=== PATIENT | male | born 1970 | race Caucasian/White ===

== ENCOUNTER 2022-01-29 08:16 | Emergency (ER) | payer OTHER ==
[~2022-01-29] VITALS: Ht 177.8 cm; Wt 90.9 kg
[~2022-01-29 08:16] MED LIST: HYDR-4383 PO
[2022-01-29 09:54] LABS: BASOPHILS % (AUTO) 0.1 % (0-1); EOSINOPHILS % (AUTO) 0.4 % (0-6); HEMATOCRIT 43.5 % (42.0-52.0); HEMOGLOBIN 14.6 g/dl (14.0-17.9); LYMPHOCYTES # (AUTO) 1.2 X10'3 (1.1-4.8); LYMPHOCYTES % (AUTO) 9.6 % (21-51); MEAN CORPUSCULAR HGB CONC 33.6 g/dL (33.0-36.5); MEAN CORPUSCULAR VOLUME 92.2 FL (78-98); MEAN PLATELET VOLUME 6.9 FL (7.4-10.4); MONOCYTES # (AUTO) 1.2 X10'3 (0-0.9); MONOCYTES % (AUTO) 9.7 % (2-12); NEUTROPHILS # (AUTO) 9.6 X10'3 (1.8-7.7); NEUTROPHILS % (AUTO) 80.2 % (42-75); PLATELET COUNT 257 X10'3 (140-440); RED BLOOD COUNT 4.71 X10'6 (4.70-6.10); RED CELL DISTRIBUTION WIDTH 12.9 % (11.5-14.5)
[2022-01-29 10:17] LABS: ALANINE AMINOTRANSFERASE 21 U/L (12-78); ALBUMIN 3.4 G/DL (3.4-5.0); ALKALINE PHOSPHATASE 51 IU/L (46-116); AMYLASE 70 U/L (25-115); ANION GAP 8 (8-16); ASPARTATE AMINO TRANSFERASE 17 U/L (10-37); BLOOD UREA NITROGEN 12 MG/DL (7-18); BUN/CREATININE RATIO 15.4 (5.4-32.0); CALCIUM 8.4 MG/DL (8.5-10.1); CHLORIDE 104 MMOL/L (99-107); CREATININE 0.78 MG/DL (0.60-1.10); GLUCOSE 94 MG/DL (70-104); LIPASE 145 U/L (73-393); POTASSIUM 4.2 MMOL/L (3.5-5.1); SODIUM 139 MMOL/L (135-145); TOTAL CARBON DIOXIDE 27.5 MMOL/L (24-32); TOTAL PROTEIN 6.9 G/DL (6.4-8.2); eGFR > 90 ML/MIN
[2022-01-29 11:32] LABS: CLARITY,URINE CLEAR (Clear); COLOR,URINE YELLOW (Yellow); GLUCOSE, URINE NEGATIVE (Neg); KETONES,URINE 15 mg/dl (Neg); LEUKOCYTE ESTERASE ,URINE NEGATIVE (Neg); NITRITES, URINE NEGATIVE (Neg); OCCULT BLOOD,URINE SMALL (Neg); PROTEIN,URINE NEGATIVE (Neg)
[2022-01-29 11:46] LABS: UA COLLECTION TYPE CLN CATCH MIDSTREAM
[2022-01-29 11:47] LABS: MUCUS STRANDS MANY /LPF (Neg); SQUAMOUS EPITHELIAL CELL,UR FEW /LPF (FEW)
[2022-01-29 11:48] LABS: BACTERIA,URINE 1+ /HPF (Neg); WBC,URINE 0-4 /HPF (0-4)
--- NOTE | 2022-01-29 12:10 | NUR ---
Pt d/c home via ambulatory in good condition, instructions given, pt verbalized understanding.
[2022-01-29 12:11] VITALS: BP 112/72
== END 2022-01-29 12:13 | disposition home or self-care (01) ==
LOC: ER 08:17
DX: R10.32 Left lower quadrant pain (principal); K43.9 Ventral hernia without obstruction or gangrene
CPT/HCPCS: 36415; 80053; 81001; 82150; 83690; 85025; 99283; 99284

== ENCOUNTER 2025-04-05 18:53 | Inpatient (IN) | payer OTHER ==
[~2025-04-05] VITALS: Ht 177.8 cm; Wt 84.1 kg
--- NOTE | 2025-04-05 19:03 | Physician Documentation ---
History of Present Illness ~ Stated Complaint: DBT Time Seen by MD: 19:04 OK to notify your PCP?: Yes Primary Medical Doctor: Varun @ [facility] Source: patient Mode of Arrival: POV Exam Limitations: no limitations HPI 54-year-old male presents with right lower extremity pain, swelling and redness. He states that he was seen a couple weeks ago at the [facility] and was told if it gets worse to come here. He states that it has been coming on and off but now he is having some tightness and pressure type pain which is from the calf all the way up to the posterior thigh and behind the knee. He has not taken any medication. He has no history of immobility but he did have a groin injury recently. He does not take any blood thinning medications. Tetanus witin 5 years: No Medication Reconciliation Allergies: Coded Allergies: No Known Allergies (Unverified , 01/29/22) Scheduled PRN Hydrocodone/Acetaminophen ([place] 5-325 Tablet), 1 TABLET PO TID PRN for pain Past Medical History Past Medical History: No Pertinent History Past Surgical History: noncontributory Alcohol Use: Sober Lives with: Spouse, Family Lives In: Home Occupation: employed Review of Systems All Other Systems at this time: Reviewed and Negative Musculoskeletal: Reports: see HPI Physical Exam Vital Signs: RN Vital Signs have been reviewed: Yes Pulse Oximetry Reflects: adequate oxygenation Physical Exam General: Alert, no distress. HEENT: No injection, moist mucous membranes. Neck: Full range of motion. Respiratory: No respiratory distress, equal chest rise and fall. Chest: No accessory muscle use. Cardiovascular: Regular rate and rhythm. Gastrointestinal: Nondistended. Extremities: Slight erythema and warmth tenderness to palpation and swelling to right calf and knee. Neurologic: Oriented x4. Psychiatric: Normal mood and affect. Skin: Normal color, warm and dry. Progress Results/Orders Results/Orders Orders - MICHELLE ROBLES NP Vl Venous (04/05/25 19:05) Electrocardiogram (04/05/25 20:37) Chest,Single View (04/05/25 20:37) Page Hospitalist (04/05/25 20:37) Fill Out Med Reconciliation (04/05/25 20:37) Completed Orders - MICHELLE ROBLES NP Vl Venous (04/05/25 19:05) Cbc/Diff (04/05/25 20:37) Pt Inr (04/05/25 20:37) PTT (04/05/25 20:37) Chest,Single View (04/05/25 20:37) BMP (04/05/25 20:37) Vital Signs 04/05/25 04/05/25 19:02 20:14 Temp 97.9 97.9 Pulse 67 65 Resp 18 18 B/P (MAP) 133/86 128/84 (99) Pulse Ox 100 99 O2 Flow Rate 0 0 Laboratory Tests Test 04/05/25 20:49 White Blood Count 8.4 Red Blood Count 4.53 L Hemoglobin 14.1 Hematocrit 40.8 L Mean Corpuscular Volume 90.2 Mean Corpuscular Hemoglobin 31.1 H Mean Corpuscular Hemoglobin Concent 34.5 Red Cell Distribution Width 12.9 Platelet Count 223 Mean Platelet Volume 6.8 L Neutrophils (%) (Auto) 64.6 Lymphocytes (%) (Auto) 20.9 L Monocytes (%) (Auto) 10.6 Eosinophils (%) (Auto) 3.3 Basophils (%) (Auto) 0.6 Neutrophils # (Auto) 5.4 Lymphocytes # (Auto) 1.8 Monocytes # (Auto) 0.9 Eosinophils # (Auto) 0.3 Basophils # (Auto) 0.0 CBC Comment Prothrombin Time 10.4 INR International Normalized Ratio 1.0 Activated Partial Thromboplast Time 26 Coagulation Comments Sodium Level 139 Potassium Level 3.6 Chloride Level 107 Carbon Dioxide Level 26.4 Anion Gap 6 L Blood Urea Nitrogen 19 H Creatinine 0.84 Estimated GFR/1.73 m2 > 90 BUN/Creatinine Ratio 22.6 H Glucose Level 100 Calcium Level 8.1 L Albumin 3.4 Chemistry Comments Medical Decision Making Additional information obtaine: N/A Findings 54-year-old with history of recent travel and immobility. Pain to right p osterior calf with erythema and warmth. DVT versus cellulitis vascular ultrasound ordered for further evaluation. No chest pain shortness of breath vital signs reassuring. Venous ultrasound indicates obstructive acute on chronic DVT extending into the common femoral artery General Diff Dx:Considerations: Unlikely: Abrasion, Contusion, Fracture, Hematoma, Laceration, Malunion, Neurovascular injury, Open fracture, Sprain, Ulcer, Other Knee Diff Dx:Considerations: Unlikely: Abrasion, Arthritis, Contusion, DJD, Fracture-femur, Fracture-fibula, Fracture-patella, Fracture-tibia, Gout, Hematom a, Laceration, Meniscus injury, Neurovascular injury, Open fracture, Rheumatoid arthritis, Septic, Sprain, Sprain-MCL, Sprain-LCL, Sprain-ACL, Sprain-PCL, Other Ankle Diff Dx:Considerations: Unlikely: Abrasion, Arthritis, Contusion, DJD, Fracture-metatarsal, Fracture-fibula, Fracture-tarsal, Fracture-tibia, Gout, Hematoma, Laceration, Malunion, Neurovascular injury, Nonunion, Open fracture, Osteomyelitis, Rheumatoid arthritis, Sprain, Septic, Ulcer, Other Foot Diff Dx:Considerations: Unlikely: Abrasion, Arthritis, Cellulitis, Contusion, Dislocation, DJD, Fracture-metatarsal, Fracture-phalynx, Fracture- tarsal, Gout, Hematoma, Ingrown toenail, Laceration, Malunion, Neurovascular injury, Open fracture, Paronychia, Puncture, Rheumatoid, Sprain, Septic, Subungual hematoma, Ulcer, Other Toe Diff Dx:Considerations: Unlikely: Abrasion, Cellulitis, Contusion, Dislocation, Felon, Fracture, Hematoma, Laceration, Neurovascular injury, Open fracture, Paronychia, Subungual hematoma, Other Departure Time of Disposition: 21:39 Disposition: 02 [facility]ORT [facility]M [facility] Impression: Primary Impression: Dvt femoral (deep venous thrombosis) Condition: Fair Referrals: NO PRIMARY CARE PROVIDER (PCP) Education Educated: Patient Educated regarding: diagnosis, treatment, need for follow up Additional Comment Medical Screen Exam This patient recieved a medical screening examination. After reviewing the individual's medical complaints with presenting symptoms and performing an appropriate physical examination, it was determined that no immediate life- threatening emergency medical condition is present. This individual is also not a women having contractions. Signature Scribe Signature: No scribe Attestation: The note accurately reflects work and decisions made by me.Michelle Robles - RONAK 04/05/25 19:48 JEANNINE LIZAMA Apr 05, 2025 19:03 MICHELLE ROBLES NP Apr 05, 2025 19:44
[2025-04-05 20:55] LABS: MEAN PLATELET VOLUME 6.8 FL (7.4-10.4); RED CELL DISTRIBUTION WIDTH 12.9 % (11.5-14.5)
--- NOTE | 2025-04-05 20:55 | RADIOLOGY REPORT ---
CHEST RADIOGRAPH Indication: admit, DVT Technique: Single frontal view of the chest was obtained COMPARISON: None FINDINGS: Lungs and pleural spaces are clear. Cardiac silhouette and nehal are within normal limits. Bones and soft tissues demonstrate no significant abnormality. IMPRESSION: No acute disease.
[2025-04-05 21:06] LABS: CREATININE 0.84 MG/DL (0.60-1.10); TOTAL CARBON DIOXIDE 26.4 MMOL/L (24-32); eCRCL 103 ML/MIN; eGFR > 90 ML/MIN
[2025-04-05 21:09] LABS: APTT 26 SECONDS (22-32); INR 1.0 INR
--- NOTE | 2025-04-05 21:11 | VASCULAR REPORT ---
PROCEDURE: [facility] VENOUS Exam Date: 04/05/2025 08:21 PM History: Swelling and pain right lower extremity. Findings: Technique: Duplex Doppler evaluation of the superficial veins of the right and left lower extremities was performed including color Doppler and spectral/pulsed waveform analysis. Findings: Chronic occlusive thrombus diffusely throughout the right femoral vein and popliteal vein. Partially occlusive thrombus in the common femoral vein in the right groin. Left common femoral vein is patent. Impression: Extensive left lower extremity DVT.
--- NOTE | 2025-04-05 21:40 | ELECTROCARDIOGRAPH REPORT ---
[facility] Test Date: 2025-04-05 Test Time: 21:37:11 Pat Name: NAYELI ORO Department: [facility] Patient ID: [id number] Room: Gender: M Physical Therapy Coordinator: : 1970 Requested By: HIPOLITO LUO Order Number: [id number] Reading MD: Measurements Intervals [place] Rate: 56 P: 57 OK: 192 QRS: -6 QRSD: 102 T: 39 QT: 416 QTc: 402 Interpretive Statements Sinus bradycardia Atrial premature complex Low voltage, extremity leads Please click the below link to view image of tracing.
[2025-04-05] MEDS ORDERED: magnesium hydroxide 30ml (MOM) UD suspension PO PRN (21:45)
[2025-04-05] MEDS ORDERED: ondansetron/PF 4mg/2ml inj IV PRN (21:45)
[2025-04-05] MEDS ORDERED: magnesium Cl slow-release 64mg tablet PO PRN (21:45)
[2025-04-05] MEDS ORDERED: potassium Cl 40MEQ/1/2NS 520ml 520 ML IV PRN (21:45)
[2025-04-05] MEDS ORDERED: HYDROcodone/acetaminophen 5mg/325mg tablet PO PRN (21:45)
[2025-04-05] MEDS ORDERED: magnesium sulf-water 2g/50mL 50 ML IV PRN (21:45)
[2025-04-05] MEDS ORDERED: magnesium sulf-water 4G/100mL 100 ML IV PRN (21:45)
[2025-04-05] MEDS ORDERED: potassium Cl 20 mEq SR tablet PO PRN ×2 (21:45)
[2025-04-05] MEDS ORDERED: mag hydrox/Alum hydrox/simeth 30ml oral suspension PO PRN (21:45)
--- NOTE | 2025-04-05 22:00 | HISTORY AND PHYSICAL-Residence ---
History & Physical Providers to CC Resident Creating Document: YVONNE ECHEVARRIA RES ~ History of Present Illness Primary Medical Doctor: Varun @ [facility] Reason for Admit\Complaint: Right lower extremity pain History of Present Illness This 54-year-old male presented to the ER with a chief concern of worsening right lower extremity pain. He said he was doing a lot of exercise in gym and had right groin discomfort about three months back and the discomfort lasted for six weeks. He recently developed right calf pain that started about a week back and has been intermittent. Now, the frequency increased and is finding it difficult to ambulate. Denies any fever or chills, chest pain, shortness of breath, dizziness, hemoptysis, nausea or vomiting, abdominal pain, constipation or diarrhea, dysuria or any other concerns. Denies having bleeding disorders or blood clots in the past. Denies any recent long travel or history of cancers. At the [place], he drives about 4-5 hours to be the the area once in a month. No recent surgical history. Mentioned that his mother had DVT but is unsure if it was provoked or unprovoked. Has been taking testosterone injection once in two weeks for the last five years and takes supplements for the gym. Denies taking any other medications Allergies: Coded Allergies: No Known Allergies (Unverified , 01/29/22) Home Medications Home Medications Active [place] 5-325 Tablet (Hydrocodone/Acetaminophen) 1 Each Tablet 1 Tablet PO TID PRN Past Medical History Past Medical History Primary hypogonadism-testosterone deficiency Past Surgical History Surgical History Comment Denies any surgical procedures Past Social History Social History Comment Denies smoking tobacco or drinking alcohol. Smokes marijuana daily. 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 No nausea, vomiting, diarrhea, constipation, hematemesis, abdominal pain, bloating, melena or fresh blood Genitourinary: No frequency, urgency, nocturia, hematuria or dysuria Musculoskeletal: Pain in the right calf present. No arthralgias Integumentary: No change in skin, hair, nails. No swelling, bruising, abrasions Neurologic: No headache, neck pain, numbness or tingling of the extremities, weakness Psychiatric: No delusions, depression, loss of interest in normal activity or change in sleep pattern, hallucinations, suicidal ideations Endocrine: No fatigue, weakness, polydipsia, polyuria, change in appetite, heat or cold intolerance, sweating, dry skin Hematological: No bleeding, petechiae, bruising Allergies: No asthma or urticaria Musculoskeletal: Reports: see HPI Exam Vitals: Vital Signs Date Time Temp Pulse Resp B/P (MAP) Pulse Ox O2 Delivery O2 Flow Rate FiO2 04/05/25 20:14 97.9 65 18 128/84 (99) 99 0 General: Alert and oriented x4 HEENT: Normocephalic and atraumatic. Pupils equal round reactive to light and accommodation. Extraocular movements intact. Oral and nasal mucosa moist Neck: Trachea is in midline. No masses or JVD Chest: Bilateral normal breath sounds. No crackles, rhonchi or wheezes Cardiovascular: Regular rate and rhythm. S1-S2 normal. No rubs or murmurs Abdomen: Soft, nontender nondistended. Bowel sounds present Extremities: No cyanosis, clubbing or edema. Right leg has mild increased circumference compared to the left leg. No erythema or pitting edema or significant swelling. Homans sign negative. Central Nervous System: No gross sensory or motor deficits. CN II to XII grossly intact. No cerebellar signs Skin: Warm and dry Diagnostic Data Last Recorded Lab Results: 04/05/25204804/05/252048 Diagnostic Data: Laboratory Tests Test 04/05/25 20:49 Prothrombin Time 10.4 SECONDS (9.0-12.0) INR International Normalized Ratio 1.0 INR Activated Partial Thromboplast Time 26 SECONDS (22-32) Coagulation Comments Advance Care Planning Advanced Care plannin - 30 Minutes Additional Plan Right lower extremity extensive DVT Family history of DVT Likely unprovoked DVT but also takes testosterone Chronic PE No polycythemia Venous ultrasound showed chronic occlusive thrombus diffusely throughout the right femoral vein and popliteal vein. Partially occlusive thrombus in the common femoral vein in the right groin. Left femoral vein is patent Started Eliquis 10 mg p.o. b.i.d.. Continue for a week and then change it to 5 mg p.o. b.i.d. for 3-6 months Requires lifelong anticoagulation if positive for any coagulation abnormalities Requires outpatient workup for factor five Leiden mutation, prothrombin gene mutation, antithrombin three deficiency, protein C and S deficiency Educated the patient and the about the outpatient woke up Ordered a chest CTA to rule out PE as the DVT was present in the proximal vein of lower extremity Chest CTA showed Chronic recanalized thrombus identified in interlobar arteries supplying bilateral lower lobes. No definite acute pulmonary embolism. Distal subsegmental acute thrombus is difficult to rule out in the context of chronic recanalized thrombus. Echocardiogram ordered EKG showed sinus bradycardia with PACs, borderline to mildly prolonged [place] interval, narrow QRS, low voltage complexes, possible Q-waves in leads III and V1 Chest x-ray shows borderline cardiomegaly and mild pulmonary vascular congestion Pending troponin and proBNP Asymptomatic bradycardia Patient denies any symptoms. Heart rate in 50s EKG shows EKG showed sinus bradycardia with PACs, borderline to mildly prolonged [place] interval, narrow QRS, low voltage complexes, possible Q-waves in leads three and V1 Possible sick sinus syndrome versus first-degree AV block Does not take any AV james blocking agents at home Continue telemetry monitoring Follow up echocardiogram Primary hypogonadism Takes testosterone shot once in two weeks GI prophylaxis: Protonix 40 mg p.o. daily Diet: Regular diet Yvonne Echevarria MD Internal Medicine Resident, PGY 3 Patient was seen and evaluated Agree with plan as discussed with the resident Lizeth Robertson MD Date of Service: Apr 05, 2025 Billing Provider: LIZETH ROBERTSON MD, MANOJNA RES Apr 05, 2025 22:00 LIZETH ROBERTSON MD Apr 06, 2025 02:55
[2025-04-05 22:33] LABS: PHOSPHORUS 3.7 MG/DL (2.3-4.5); PRO BRAIN NATRIURETIC PEPTIDE 123 PG/ML (0-125)
--- NOTE | 2025-04-05 22:40 | RADIOLOGY REPORT ---
COMPUTERIZED TOMOGRAPHIC ANGIOGRAPHY OF THE CHEST WITH INTRAVENOUS CONTRAST REASON FOR EXAM: Positive DVT study. Rule out pulmonary embolism. Dyspnea. COMPARISON: None TECHNIQUE: The exam was performed on a multidetector spiral scanner. Spiral images were acquired from the thoracic inlet through the adrenal glands, during the bolus intravenous administration of contrast. Multiplanar maximum intensity projection (MIP) images were provided. Radiation optimization: All CT scans at this facility use at least one of these dose optimization techniques: Automated exposure control mA and/or kV adjustment per patient size (includes targeted exams where dose is matched to clinical indication) or iterative reconstruction. CONTRAST ADMINISTERED: 100 mL omnipaque 350 intravenously. RADIATION DOSE: CTDI: 19 mGy DLP: 713 mGy-cm FINDINGS: There is minimal dependent atelectasis in bilateral lower lobes of the lungs. No significant pulmonary nodule or mass is identified. There is no bronchiectasis or honeycombing. There is no pleural effusion. There is no pneumothorax. The heart is not enlarged. The esophagus appears diffusely thick walled. There is no pericardial effusion. There is no thoracic aortic aneurysm or dissection. There is no central pulmonary arterial filling defect to suggest acute pulmonary embolism as far as the interlobar level. There are wall adherent recanalized chronic thrombi at interlobar pulmonary arteries supplying bilateral lower lobes. No acute osseous abnormality is identified. IMPRESSION: Chronic recanalized thrombus identified in interlobar arteries supplying bilateral lower lobes. No definite acute pulmonary embolism. Distal subsegmental acute thrombus is difficult to rule out in the context of chronic recanalized thrombus.
[2025-04-05 23:06] LABS: LEUKOCYTE ESTERASE ,URINE NEGATIVE (Neg); NITRITES, URINE NEGATIVE (Neg); OCCULT BLOOD,URINE TRACE-INTACT (Neg); UA COLLECTION TYPE NON-SPECIFIED
[2025-04-05 23:10] VITALS: BP 128/79; PULSE 59; RESP 16; TEMP 98.2; O2SAT 98
[2025-04-05 23:13] LABS: AMORPHOUS PHOSPHATES 2+; SQUAMOUS EPITHELIAL CELL,UR NONE SEEN /LPF (FEW)
[2025-04-05 23:33] LABS: URINE AMPHETAMINE SCREEN NEGATIVE (Neg); URINE BARBITUATE SCREEN NEGATIVE (Neg); URINE BENZODIAZEPINES SCREEN NEGATIVE (Neg); URINE CANNABINOID SCREEN POSITIVE (Neg); URINE COCAINE SCREEN NEGATIVE (Neg); URINE METHADONE SCREEN NEGATIVE (Neg); URINE OPIATE SCREEN NEGATIVE (Neg); URINE PHENCYCLIDINE SCREEN NEGATIVE (Neg)
[2025-04-05 23:45] VITALS: RESP 18; O2SAT 96
[2025-04-06 05:39] LABS: MEAN PLATELET VOLUME 7.1 FL (7.4-10.4); RED CELL DISTRIBUTION WIDTH 13.1 % (11.5-14.5)
[2025-04-06 05:58] LABS: APTT 28 SECONDS (22-32); INR 1.1 INR
[2025-04-06 06:00] VITALS: BP 116/71; PULSE 65; RESP 18; TEMP 98.1; O2SAT 99
[2025-04-06 06:19] LABS: CHOL/HDL RATIO 4.2 (0.00-4.99); CREATININE 0.85 MG/DL (0.60-1.10); LDL CHOLESTEROL 106 MG/DL (50-100); PHOSPHORUS 3.1 MG/DL (2.3-4.5); TOTAL CARBON DIOXIDE 27.4 MMOL/L (24-32); eCRCL 101 ML/MIN; eGFR > 90 ML/MIN
[2025-04-06] MEDS: HEPARIN DRIP DVT/PE -**PHARMACIST TO DOSE IV ONE (07:25)
[2025-04-06] MEDS: HEPARIN DRIP INITAL BOLUS --- DO NOT GIVE/ORDER MC ONE (07:30)
[2025-04-06] MEDS ORDERED: heparin 10,000 units/1 ML INJ IV PRN (07:30)
[2025-04-06] MEDS: MESSAGE TO NURSING IV ONE ×3 (07:50→22:57)
[2025-04-06] MEDS: pantoprazole 40mg Tablet.DR PO SCH (07:54)
[2025-04-06] MEDS: heparin 25,000 UNIT/250ml bag 250 ML IV PRN (07:57)
[2025-04-06 08:00] VITALS: RESP 16; O2SAT 98
[2025-04-06] MEDS: K and/or MAG REPLACEMENT MC SCH (08:00)
[2025-04-06] MEDS: FLU VACC TS2025-26(6MOS UP)/PF (FLULAVAL) 45 MCG/0.5 ML SYRINGE IMVAC ONE (14:51)
[2025-04-06 18:00] VITALS: BP 119/68; PULSE 62; RESP 15; TEMP 98; O2SAT 99
--- NOTE | 2025-04-06 18:49 | CARDIOLOGY REPORT ---
APPROVED REPORT EXAM: Comprehensive 2D, Doppler, and color-flow Echocardiogram. Patient Location: [facility] B Heart Rate: 50's bpm Rhythm: SINUS BRADYCARDIA Indications CARDIOMEGALY Promotions Intern: NONE Previous echo: NONE 2D Dimensions RVDd 3.6 cm LA Diam 3.9 cm IVSd 0.7 (0.7-1.1cm) LVDd 5.3 cm PWd 0.7 (0.7-1.1cm) IVSs 1.1 (0.8-1.2cm) LVDs 4.0 (2.5-4.0cm) PWs 1.6 (0.8-1.2cm) LVOT Diameter 2.29 (1.8-2.4cm) LVEF(%) 48.1 (>50%) FS (%) 24.4 % SV 64.6 ml CO 4.4 L/min M-Mode Dimensions Aortic Root 3.70 (2.2-3.7cm) Aortic Cusp Exc 2.05 (1.5-2.0cm) Aortic Valve AoV Peak Jagdeep. 136.6 cm/s AoV VTI 25.2 cm AO Peak GR. 7.5 mmHg AO Mean GR. 4 mmHg LVOT VTI 23.79 cm LVOT Peak Jagdeep. 113.0 cm/s HO(VTI)/BSA 3.91 cm2/m2 HO (VTI) 3.91 cm2 AV DI 0.94 % Mitral Valve MV E Velocity 46.3 cm/s MV Peak Gr. 2 mmHg MV DECEL TIME 320 ms MV A Velocity 47.4 cm/s MV PHT 48 ms E/A Ratio 1.0 MVA (PHT) 4.58 cm2 MV VMax 77.9 cm/s TDI Lateral E' P. V 8.20 cm/s E/Lateral E' 5.6 Tricuspid Valve TR P. Velocity 240 cm/s RAP ESTIMATE 10 mmHg TR Peak Gr. 23 mmHg RVSP 33 mmHg LEFT VENTRICLE Normal LV size and wall thickness. Overall systolic function is mildly reduced. LVEF is 45-50%. RIGHT VENTRICLE RV is mildly dilated with normal function. Elevated right heart pressures with an RVSP of 33 mmHg. ATRIA The left atrium size is normal. AORTIC VALVE Trileaflet AV appears normal without stenosis. Trivial insufficiency. MITRAL VALVE Mild MV annular calcification without stenosis. Trace regurgitation. TRICUSPID VALVE TV appears structurally normal with mild regurgitation. PULMONIC VALVE Normal PV without stenosis, physiologic insufficiency. GREAT VESSELS The aortic root is upper limit normal in size. PERICARDIUM Normal pericardium. No effusion. Other Information Study Quality: Adequate but difficult subcostal window. Conclusion Normal LV size and wall thickness. Overall systolic function is mildly reduced. LVEF is 45-50%. RV is mildly dilated with normal function. Elevated right heart pressures with an RVSP of 33 mmHg. The left atrium size is normal. Trileaflet AV appears normal without stenosis. Trivial insufficiency. Mild MV annular calcification without stenosis. Trace regurgitation. TV appears structurally normal with mild regurgitation. Normal pericardium. No effusion.
[2025-04-06 20:30] VITALS: RESP 16; O2SAT 98
--- NOTE | 2025-04-06 21:41 | PROGRESS NOTE- Residence ---
Progress Note - Resident Providers to CC Resident Creating Document: SONNY WATERS RES ~ Antibiotic Timeout Antibiotic Ordered?: No Subjective Seen and examined patient at bedside, he reports improvement in his symptoms Objective Vital Signs Date Time Temp Pulse Resp B/P (MAP) Pulse Ox O2 Delivery O2 Flow Rate FiO2 04/06/25 18:30 65 04/06/25 18:00 98.0 15 119/68 (85) 99 Room Air 04/06/25 08:00 0.0 Result Diagram: 04/06/258 04/06/25 0448 Alert and oriented x4 HEENT: Normocephalic and atraumatic. Pupils equal round reactive to light and accommodation. Extraocular movements intact. Oral and nasal mucosa moist Neck: Trachea is in midline. No masses or JVD Chest: Bilateral normal breath sounds. No crackles, rhonchi or wheezes Cardiovascular: Regular rate and rhythm. S1-S2 normal. No rubs or murmurs Abdomen: Soft, nontender nondistended. Bowel sounds present Extremities: No cyanosis, clubbing or edema. Right leg has mild increased circumference compared to the left leg. No erythema or pitting edema or significant swelling. Homans sign negative. Central Nervous System: No gross sensory or motor deficits. CN II to XII grossly intact. No cerebellar signs Skin: Warm and dry Coagulation Studies Laboratory Tests Test 04/06/25 04:48 04/06/25 14:02 Prothrombin Time 10.9 SECONDS (9.0-12.0) INR International Normalized Ratio 1.1 INR Activated Partial Thromboplast Time 28 SECONDS (22-32) APTT (Heparin Protocol) 62 SECONDS (45-75) Coagulation Comments Advance Care Planning Advanced Care plannin - 30 Minutes Assessment Assessment 54 years old man he is currently evaluated right lower extremity pain Plan Plan Right lower extremity extensive DVT Family history of DVT Likely unprovoked DVT but also takes testosterone Chronic PE No polycythemia Venous ultrasound showed ;chronic occlusive thrombus diffusely throughout the right femoral vein and popliteal vein. Partially occlusive thrombus in the common femoral vein in the right groin. Left femoral vein is patent Chest x-ray ;shows borderline cardiomegaly and mild pulmonary vascular congestion Troponin and proBNP are normal Chest CTA showed Chronic recanalized thrombus identified in interlobar arteries supplying bilateral lower lobes. No definite acute pulmonary embolism. Distal subsegmental acute thrombus is difficult to rule out in the context of chronic recanalized thrombus. EKG showed sinus bradycardia with PACs, borderline to mildly prolonged [place] interval, narrow QRS, low voltage complexes, possible Q-waves in leads III and V1 Echocardiogram :LVEF is 45-50%, RVSP of 33 mmHg. proBNP are normal Started heparin drip as per protocol Continue monitoring CBC/CMP Acute congestive heart failure with reduced ejection fraction 45% NYHA class I, AHA-class B Chest x-ray ;shows borderline cardiomegaly and mild pulmonary vascular congestion Pro BNP is normal We will consult Cardiology tomorrow in view of starting GDM T drugs Asymptomatic bradycardia Continue monitoring telemetry Primary hypogonadism Takes testosterone shot once in two weeks GI prophylaxis: Protonix 40 mg p.o. daily Diet: Regular diet DVT prophylax-heparin drip Disposition-patient will continue monitoring PCU with 24 hours today, possible cardiology consult tomorrow Sonny Waters PGY1-Internal Medicine Resident Date of Service: Apr 06, 2025 Billing Provider: YESICA GREGORY MD, SATISH, RES Apr 06, 2025 21:41
[2025-04-06 22:00] VITALS: BP 115/69; PULSE 57; RESP 16; TEMP 97.4; O2SAT 98
[2025-04-07 05:36] LABS: MEAN PLATELET VOLUME 7.6 FL (7.4-10.4); RED CELL DISTRIBUTION WIDTH 12.9 % (11.5-14.5)
[2025-04-07 05:42] LABS: INR 1.0 INR
[2025-04-07 05:46] LABS: CREATININE 0.94 MG/DL (0.60-1.10); PHOSPHORUS 2.2 MG/DL (2.3-4.5); TOTAL CARBON DIOXIDE 26.7 MMOL/L (24-32); eCRCL 92 ML/MIN; eGFR 83 ML/MIN
[2025-04-07 06:00] VITALS: BP 135/97; PULSE 65; RESP 14; TEMP 97.4; O2SAT 99
[2025-04-07] MEDS ORDERED: heparin 25,000 UNIT/250ml bag 250 ML IV PRN (06:15)
[2025-04-07 08:00] VITALS: RESP 17; O2SAT 99
[2025-04-07 10:00] VITALS: BP 127/73; PULSE 75; RESP 18; TEMP 97.8; O2SAT 98
--- NOTE | 2025-04-07 12:56 | DISCHARGE SUMMARY-Residence ---
Discharge Summary Providers to CC Resident Creating Document: TAMICA GUZMAN, RES ~ Discharge Summary Admission Diagnosis: DVT Hospital Course DATE OF ADMISSION: 04/05/2025 DATE OF DISCHARGE: 04/07/2025 Discharge Diagnosis\Comment: -Right lower extremity extensive DVT with Family history of DVT -Unprovoked DVT -Chronic PE -Stable chronic congestive heart failure with reduced ejection fraction 45% on 04/06/2025 on discharge -Asymptomatic bradycardia -Primary hypogonadism on testosterone replacement hormonal therapy Operations\Procedures: None Consultants: Hospitalist Dr Gregory team Complications: None Condition on DC: Stable New Medications: Apixaban (Eliquis) 5 Mg Tablet 5 MG PO BID for 30 Days, #74 TAB P.o. Eliquis 5 mg x 4 tablets per day for total 7 days ( 10 mg BID x total 7days), followed by p.o. Eliquis 5 mg x 2 tablets per day for total 23 days ( 5 mg b.i.d. x total 23 days), and managed as per PCP. Discharge Summary: A 54 years old male with a past medical history of primary hypogonadism on testosterone replacement therapy presented with progressive right lower extremity intermittent pain while he was doing vigorous exercise in gym felt that the right groin discomfort about three months ago and it lasted for six weeks, which put him on ambulation difficulties. He denies for any risk factors of deep vein stasis and thrombosis including sedentary lifestyle, denies for any Past history of DVT and PE, significant family history except for his mother non-specific one time DVT leg. He has been taking testosterone injection once in two weeks for the last five years and takes supplements for the gym. Hospital Course: Patient was admitted to the hospital for the further investigation and management for his possible DVT causing the intolerable leg pain. HIs EKG showed sinus bradycardia with PACs, borderline to mildly prolonged DE interval, narrow QRS, low voltage complexes, possible Q-waves in leads III and V1. HIs one time troponin and proBNP were within normal limits. We initiated IV heparin for as per DVT protocol. We did not initiate the GDMT for his CHFrEF 45% during hospitalization without showing any acute signs and symptoms of decompensated congestive heart failure and proBNP was normal during hospitalization. GI prophylaxis was achieved with the p.o. Protonix 40 mg daily. His ambulation was assured by working in the hospital floor before he was discharged today. The patient's concern and questions were addressed properly with the best knowledge of our team before he was discharged back home today. Today, vitals were stable at the moment with temp 97.8 F, DE 75/minute, RR 18/minute, BP 127/73 mm Hg, pulse oximetry 98% on room air. On examination, Alert and oriented x4 HEENT: Normocephalic and atraumatic. Pupils equal round reactive to light and accommodation. Extraocular movements intact. Oral and nasal mucosa moist Neck: Trachea is in midline. No masses or JVD Chest: Bilateral normal breath sounds. No crackles, rhonchi or wheezes Cardiovascular: Regular rate and rhythm. S1-S2 normal. No rubs or murmurs Abdomen: Soft, nontender nondistended. Bowel sounds present Extremities: No cyanosis, clubbing or edema. Right leg has mild increased circumference compared to the left leg. No erythema or pitting edema or significant swelling. Homans sign negative. Central Nervous System: No gross sensory or motor deficits. CN II to XII grossly intact. No cerebellar signs Skin: Warm and dry Labs Laboratory Tests Test 04/05/25 20:49 04/05/25 22:20 04/06/25 04:48 04/06/25 14:02 White Blood Count 8.4 X10'3 7.9 X10'3 Red Blood Count 4.53 X10'6 4.56 X10'6 Hemoglobin 14.1 g/dl 13.9 g/dl Hematocrit 40.8 % 41.2 % Mean Corpuscular Volume 90.2 FL 90.3 FL Mean Corpuscular Hemoglobin 31.1 PG 30.4 PG Mean Corpuscular Hemoglobin Concent 34.5 g/dL 33.7 g/dL Red Cell Distribution Width 12.9 % 13.1 % Platelet Count 223 X10'3 232 X10'3 Mean Platelet Volume 6.8 FL 7.1 FL Neutrophils (%) (Auto) 64.6 % 60.0 % Lymphocytes (%) (Auto) 20.9 % 24.7 % Monocytes (%) (Auto) 10.6 % 10.5 % Eosinophils (%) (Auto) 3.3 % 4.2 % Basophils (%) (Auto) 0.6 % 0.6 % Neutrophils # (Auto) 5.4 X10'3 4.8 X10'3 Lymphocytes # (Auto) 1.8 X10'3 2.0 X10'3 Monocytes # (Auto) 0.9 X10'3 0.8 X10'3 Eosinophils # (Auto) 0.3 X10'3 0.3 X10'3 Basophils # (Auto) 0.0 X10'3 0.0 X10'3 CBC Comment Prothrombin Time 10.4 SECONDS 10.9 SECONDS INR International Normalized Ratio 1.0 INR 1.1 INR Activated Partial Thromboplast Time 26 SECONDS 28 SECONDS Coagulation Comments Sodium Level 139 MMOL/L 140 MMOL/L Potassium Level 3.6 MMOL/L 3.6 MMOL/L Chloride Level 107 MMOL/L 104 MMOL/L Carbon Dioxide Level 26.4 MMOL/L 27.4 MMOL/L Anion Gap 6 9 Blood Urea Nitrogen 19 MG/DL 13 MG/DL Creatinine 0.84 MG/DL 0.85 MG/DL Estimated GFR/1.73 m2 > 90 ML/MIN > 90 ML/MIN BUN/Creatinine Ratio 22.6 15.3 Glucose Level 100 MG/DL 76 MG/DL Hemoglobin A1c 5.0 % Calcium Level 8.1 MG/DL 8.1 MG/DL Phosphorus Level 3.7 MG/DL 3.1 MG/DL Magnesium Level 2.1 MG/DL 2.1 MG/DL Troponin I High Sensitivity 5 ng/L Pro-B-Type Natriuretic Peptide 123 PG/ML Albumin 3.4 G/DL 3.2 G/DL Chemistry Comments Urine Specimen Description Non-specified Urine Color Yellow Urine Clarity Clear Urine pH 8.0 Urine Specific [place] 1.010 Urine Protein Negative mg/dl Urine Glucose (UA) Negative mg/dl Urine Ketones Negative mg/dl Urine Occult Blood Trace-intact Urine Nitrite Negative Urine Bilirubin Negative Urine Urobilinogen 0.2 E.U/dL Urine Leukocyte Esterase Negative Urine RBC 3-10 /HPF Urine WBC None seen /HPF Urine Squamous Epithelial Cells None seen /LPF Urine Amorphous Phosphates 2+ Urine Bacteria Few /HPF Urine Culture Indicated Not ind Volume Urine Centrifuged 10 ml Urine Comment Urine Opiates Screen Negative Urine Methadone Screen Negative Urine Fentanyl Screen Negative Urine Barbiturates Screen Negative Urine Phencyclidine Screen Negative Urine Amphetamines Screen Negative Urine Benzodiazepines Screen Negative Urine Cocaine Screen Negative Urine Cannabinoids Screen Positive Drug Screen Comment Total Bilirubin 0.9 MG/DL Aspartate Amino Transf (AST/SGOT) 19 U/L Alanine Aminotransferase (ALT/SGPT) 16 U/L Alkaline Phosphatase 75 IU/L Total Protein 6.8 G/DL Globulin 3.6 G/DL Albumin/Globulin Ratio 0.9 Triglycerides Level 65 MG/DL Cholesterol Level 159 MG/DL LDL Cholesterol 106 MG/DL HDL Cholesterol 38 MG/DL Cholesterol/HDL Ratio 4.2 APTT (Heparin Protocol) 62 SECONDS Test 04/06/25 21:35 04/07/25 04:28 04/07/25 12:06 APTT (Heparin Protocol) 58 SECONDS 85 SECONDS 71 SECONDS Coagulation Comments White Blood Count 7.6 X10'3 Red Blood Count 4.75 X10'6 Hemoglobin 14.6 g/dl Hematocrit 42.6 % Mean Corpuscular Volume 89.9 FL Mean Corpuscular Hemoglobin 30.8 PG Mean Corpuscular Hemoglobin Concent 34.3 g/dL Red Cell Distribution Width 12.9 % Platelet Count 243 X10'3 Mean Platelet Volume 7.6 FL Neutrophils (%) (Auto) 68.4 % Lymphocytes (%) (Auto) 20.1 % Monocytes (%) (Auto) 7.8 % Eosinophils (%) (Auto) 3.1 % Basophils (%) (Auto) 0.6 % Neutrophils # (Auto) 5.2 X10'3 Lymphocytes # (Auto) 1.5 X10'3 Monocytes # (Auto) 0.6 X10'3 Eosinophils # (Auto) 0.2 X10'3 Basophils # (Auto) 0.0 X10'3 CBC Comment Prothrombin Time 10.7 SECONDS INR International Normalized Ratio 1.0 INR Sodium Level 139 MMOL/L Potassium Level 4.1 MMOL/L Chloride Level 105 MMOL/L Carbon Dioxide Level 26.7 MMOL/L Anion Gap 7 Blood Urea Nitrogen 14 MG/DL Creatinine 0.94 MG/DL Estimated GFR/1.73 m2 83 ML/MIN BUN/Creatinine Ratio 14.9 Glucose Level 102 MG/DL Calcium Level 8.3 MG/DL Phosphorus Level 2.2 MG/DL Magnesium Level 2.1 MG/DL Total Bilirubin 0.4 MG/DL Aspartate Amino Transf (AST/SGOT) 15 U/L Alanine Aminotransferase (ALT/SGPT) 9 U/L Alkaline Phosphatase 81 IU/L Total Protein 6.9 G/DL Albumin 3.1 G/DL Globulin 3.8 G/DL Albumin/Globulin Ratio 0.8 Chemistry Comments Imaging during hospitalization: -Chest x-ray shows borderline cardiomegaly and mild pulmonary vascular congestion -bilateral venous duplex Doppler vascular ultrasound on 04/05/2025 showed extensive left lower extremity DVT. -CTA chest with IV contrast on 04/05/2025 showed Chronic recanalized thrombus identified in interlobar arteries supplying bilateral lower lobes. No definite acute pulmonary embolism. Distal subsegmental acute thrombus is difficult to rule out in the context of chronic recanalized thrombus. -2D echocardiogram on 04/06/2025 showed systolic function mildly reduced, LVEF 45-50%, RVSP 33 mm Hg, normal LA, trace MR, TR, normal pericardium and no pleural effusion. Discharge instructions: -immediate return to ER for any emergent situation including intolerable progressive lower extremities pain at rest/on walking, changes in color of lower extremities including turning blue and black, acute sudden progressive shortness of breaths along with peripheral chest discomfort/pressure/pain, coughing of the blood, severe fatigue/weakness and pass out episode etc. -importance to follow up with the PCP for hypogonadism and testosterone replacement therapy, and Hematology outpatient setting one week's after hospital discharge for further investigation and management plan including outpatient blood workup for CBC, CMP, PT/INR, aPTT, antibody against protein C protein S, antithrombinIII, factor five Leiden mutation, prothrombin gene mutation, antiphospholipid antibodies and lupus anticoagulant factors etc. 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 -being compliance with blood thinners/anticoagulant is play important: P.o. Eliquis 5 mg x 4 tablets per day for total 7 days (10 mg BID x total 7days), followed by p.o. Eliquis 5 mg x 2 tablets per day for total 23 days (5 mg b.i.d. x total 23 days), and managed as per PCP/ wood fuel pelletizer. -follow up with Cardiology for heart failure management Resident attestation: Patient was seen, examined and discussed with attending MD, Dr. Rehan GUZMAN MD Internal Medicine Resident, PGY3 [facility] *Problems/Diagnosis: (1) Dvt femoral (deep venous thrombosis) Status: Resolved Total Time Spent on D/C: > 30 Minutes Date of Service: Apr 07, 2025 Billing Provider: YESICA GREGORY MD,TIN, RES Apr 07, 2025 12:55
[2025-04-07] MEDS ORDERED: APIX5TAB3 PO (13:31)
[2025-04-07] MEDS: MESSAGE TO NURSING IV ONE (13:32)
== END 2025-04-07 15:36 | disposition home or self-care (01) | DRG 299 ==
LOC: ER 18:54 → ORTHO 4S 21:48 → UNDOADMIN 23:22 → ORTHO 4S 04-06 00:19
PROVIDERS: ADMIT Internal Medicine; ATTEND Family Medicine
PROC: B32T1ZZ Computerized Tomography (CT Scan) of Left Pulmonary Artery using Low Osmolar Contrast (ICD-10-PCS; principal; 2025-04-05)
PROC: B3201ZZ Computerized Tomography (CT Scan) of Thoracic Aorta using Low Osmolar Contrast (ICD-10-PCS; 2025-04-05)
PROC: B32S1ZZ Computerized Tomography (CT Scan) of Right Pulmonary Artery using Low Osmolar Contrast (ICD-10-PCS; 2025-04-05)
DX: I82.411 Acute embolism and thrombosis of right femoral vein (principal); I50.23 Acute on chronic systolic (congestive) heart failure; E23.0 Hypopituitarism; I27.82 Chronic pulmonary embolism
CPT/HCPCS: 36415; 71045; 71275; 80048; 80053; 80061; 80305; 81001; 83036; 83735; 83880; 84100; 84484; 85025; 85610; 85730; 87081; 93005; 93306; 93971; 99285; A6213; G0378; J1644; Q9967

== ENCOUNTER 2025-05-13 00:54 | Emergency (ER) | payer OTHER ==
[~2025-05-13] VITALS: Ht 177.8 cm; Wt 84.8 kg
[~2025-05-13 00:54] MED LIST changes: +APIX5TAB3 PO; +EMPA10TA PO; -HYDR-4383 PO; +LISI5TAB22 PO; +METO-395 PO; +SPIR25TA5 PO
--- NOTE | 2025-05-13 01:06 | ELECTROCARDIOGRAPH REPORT ---
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 León Reese Measurements Intervals [place] Rate: 64 P: 31 ND: 190 QRS: -19 QRSD: 100 T: 43 QT: 404 QTc: 417 Interpretive Statements Sinus rhythm Low voltage, extremity and precordial leads Electronically Signed On 05-13-2025 19:08:[address] León Reese Please click the below link to view image of tracing.
--- NOTE | 2025-05-13 01:24 | Physician Documentation ---
History of Present Illness ~ Chief Complaint: Chest Pain Stated Complaint: MULTIPLE COMPLAINTS Time Seen by MD: 01:21 Primary Medical Doctor: Varun @ [facility] HPI Patient presents to the emergency room being woken out of sleep with shortness of breath and diaphoresis. He denies any chest pain but does describe some chest tightness which has resolved. He states he had an episode like this a proximally 1-2 weeks ago and called the [facility] regarding this and they were setting him up for a sleep study. He does have a cardiologic appointment next month. He had a stress test performed one year ago which was negative. History of CHF that has well as pulmonary embolism. Currently he states all of his symptoms that brought him here have completely resolved. Medication Reconciliation Allergies: Coded Allergies: No Known Allergies (Unverified , 04/25/25) Scheduled Apixaban (Eliquis), 5 MG PO BID Empagliflozin (Jardiance), 1 TAB PO DAILY Lisinopril (Lisinopril), 1 TAB PO DAILY Metoprolol Succinate (Metoprolol Succinate), 1 TAB PO DAILY Spironolactone (Spironolactone), 12.5 MG PO DAILY Past Medical History Past Medical History: No Pertinent History Past Surgical History: noncontributory Patient History: DVT MOTHER FH: CHF (congestive heart failure) MOTHER FH: diabetes mellitus FATHER MOTHER FH: lung cancer FATHER FH: rheumatoid arthritis FATHER MOTHER Hiatal hernia MOTHER Osteoarthritis FATHER MOTHER Transfusion of whole blood MOTHER Alcohol Use: Sober Lives with: Spouse, Family Lives In: Home Occupation: employed Review of Systems ROS All review of systems negative except as per HPI Physical Exam Vital Signs: Temperature: 97.0, Heart Rate: 66, Respiratory Rate: 18, BP: 126/76, Pulse Oximetry: 99, Weight: 84.800 Oxygen Flow Rate: 0 Physical Exam General: Patient is awake, alert, oriented x4 in no acute distress Head: Normocephalic and atraumatic. Eyes: Conjunctival normal. EOMI. PERRL. ENT: Mucous membranes moist. Neck: Supple, trachea is midline. Chest: Clear to auscultation bilaterally without rales, rhonchi, or wheezes. There is no accessory muscle use or retractions. Cardiac: RRR without murmurs, gallops, or rubs. Extremities: Normal strength. Normal range of motion. No deformities or edema. No calf tenderness to palpation Progress Results/Orders Results/Orders Orders - MANAV CARABALLO MD Chest,Single View (05/13/25 01:25) Monitor (05/13/25 01:02) Saline Lock (05/13/25 01:02) Oxygen (05/13/25 01:02) Hs Troponin I W Calculations (05/13/25 04:02) Completed Orders - MANAV CARABALLO MD Chest,Single View (05/13/25 01:25) Cbc/Diff (05/13/25 01:02) BMP (05/13/25 01:02) PBNP (05/13/25 01:02) Electrocardiogram (05/13/25 01:02) Hs Troponin I W Calculations (05/13/25 01:02) Hs Troponin I W Calculations (05/13/25 03:02) Vital Signs 05/13/25 05/13/25 05/13/25 05/13/25 00:57 02:31 03:13 03:13 Temp 97.0 97.0 97.0 Pulse 66 62 63 Resp 18 18 15 B/P (MAP) 126/76 112/73 (86) 105/69 (81) Pulse Ox 99 100 97 O2 Flow Rate 0 0 0 Laboratory Tests Test 05/13/25 01:14 05/13/25 02:35 White Blood Count 7.7 Red Blood Count 4.94 Hemoglobin 15.3 Hematocrit 44.0 Mean Corpuscular Volume 89.1 Mean Corpuscular Hemoglobin 31.0 Mean Corpuscular Hemoglobin Concent 34.7 Red Cell Distribution Width 13.0 Platelet Count 299 Mean Platelet Volume 6.7 L Neutrophils (%) (Auto) 65.5 Lymphocytes (%) (Auto) 22.3 Monocytes (%) (Auto) 9.7 Eosinophils (%) (Auto) 2.0 Basophils (%) (Auto) 0.5 Neutrophils # (Auto) 5.1 Lymphocytes # (Auto) 1.7 Monocytes # (Auto) 0.7 Eosinophils # (Auto) 0.2 Basophils # (Auto) 0.0 CBC Comment Sodium Level 139 Potassium Level 4.2 Chloride Level 104 Carbon Dioxide Level 27.1 Anion Gap 8 Blood Urea Nitrogen 20 H Creatinine 0.94 Estimated GFR/1.73 m2 83 BUN/Creatinine Ratio 21.3 H Glucose Level 105 H Calcium Level 9.1 Troponin I High Sensitivity 6 5 Pro-B-Type Natriuretic Peptide 50 Albumin 4.1 Chemistry Comments Troponin I High Sens Percent Delta 16 Troponin I Hi Sens Absolute Change -1 EKG/XRAY/CT/US/VASC/MRI EKG : Additional Comment EKG interpreted by myself shows time of 0104, rate 64, sinus rhythm, borderline left axis deviation, no ST changes Medical Decision Making Additional information obtaine: old records Findings Patient presented to the emergency room for evaluation of sudden onset shortness of breath diaphoresis and chest tightness that woke him out of sleep. Differentials include but are not limited to ACS, pulmonary embolism, sleep apne a, panic attack, heart failure therefore emergent labs and imaging indicated. Chest x-ray is reassuring. Troponins x2 that has reassuring with no elevation of BNP. Patient's heart score of three is reassuring. He had not feel patient is symptoms represent ACS. Possible sleep apnea for which he has close follow up. ER precautions discussed. As patient's symptoms have completely resolved he had not feel he warrants investigation into pulmonary embolism. He is on appropriate treatment for pulmonary embolism Heart Score: 3 Differential Dx:Considerations: Include: angina, aortic dissection, chest wall pain, cholelithiasis, CHF, costochondritis, esophageal reflux/spasm, gastritis, herpes zoster, myocardial infarction, pericarditis, pleuritis, pancreatitis, pneumonia, pneumothorax, pulmonary embolus, other Departure Disposition: 01 HOME / SELF CARE / HOMELESS Impression: Primary Impression: Chest pain Condition: Stable Discharge Instructions: Nonspecific Chest Pain, Adult Referrals: NO PRIMARY CARE PROVIDER (PCP) Signature Scribe Signature: No scribe Attestation: The note accurately reflects work and decisions made by me.Manav Caraballo MD 05/13/25 03:20 MANAV CARABALLO MD May 13, 2025 01:24
[2025-05-13 01:31] LABS: MEAN PLATELET VOLUME 6.7 FL (7.4-10.4); RED CELL DISTRIBUTION WIDTH 13.0 % (11.5-14.5)
--- NOTE | 2025-05-13 01:34 | RADIOLOGY REPORT ---
CHEST RADIOGRAPH Indication: CP Technique: Single frontal view of the chest was obtained COMPARISON: DI CHEST,SINGLE VIEW on DOS: 04/25/25, CT CTA CHEST PE W/ IV CONTRAST on DOS: 04/05/25, DI CHEST,SINGLE VIEW on DOS: 04/05/25 FINDINGS: Lungs and pleural spaces are clear. Cardiac silhouette and nehal are within normal limits. Bones and soft tissues demonstrate no significant abnormality. IMPRESSION: No acute disease.
[2025-05-13 01:49] LABS: CREATININE 0.94 MG/DL (0.60-1.10); PRO BRAIN NATRIURETIC PEPTIDE 50 PG/ML (0-125); TOTAL CARBON DIOXIDE 27.1 MMOL/L (24-32); eCRCL 92 ML/MIN; eGFR 83 ML/MIN
[2025-05-13 03:13] VITALS: BP 105/69; PULSE 63; RESP 15; O2SAT 97
[2025-05-13 03:26] VITALS: TEMP 97
== END 2025-05-13 03:33 | disposition home or self-care (01) ==
LOC: ER 00:54
DX: R07.9 Chest pain, unspecified (principal); Z86.711 Personal history of pulmonary embolism; Z79.899 Other long term (current) drug therapy
CPT/HCPCS: 36415; 71045; 80048; 83880; 84484; 85025; 93005; 99285